=== PATIENT | female | born 1985 | race Caucasian/White ===

== ENCOUNTER 2024-04-03 05:30 | Emergency (ER) | payer BC, SELFPAY ==
--- NOTE | 2024-04-04 08:05 | ED.URI1 ---
HPI - URI/Sore Throat General Stated Complaint: SORE THROAT History of Present Illness HPI Narrative: 38-year-old female presented to the emergency department for cough with began 4 to 5 days ago. She has been coughing up some phlegm. No fever or hemoptysis. She states she is not worried about COVID or influenza. She does not complain of chest pain or vomiting. Review of Systems ROS Narrative A ten point review of systems is negative except as noted above. Exam Narrative Exam Narrative: Nurses note and vital signs reviewed and patient is not hypoxic. General: The patient appears well and in no apparent distress. Patient is resting comfortably on cart. She is speaking in full sentences Skin: Warm, dry, no pallor noted. There is no rash noted. Head: Normocephalic, atraumatic Eye: Normal conjunctiva, no drainage Ears, Nose, Mouth, and Throat: oral mucosa is moist. Nares patent. Cardiovascular: Regular Rate and Rhythm Respiratory: Patient is in no distress, no accessory muscle use, lungs are clear to auscultation, no wheezing, rales or rhonchi. Breath sounds are equal. Back: non-tender GI: Soft and nontender Musculoskeletal: The patient has no evidence of calf tenderness, no pitting edema, symmetrical pulses noted bilaterally Neurological: Awake and alert Psychiatric: Cooperative MDM - URI/Sore Throat MDM Narrative Medical decision making narrative: The patient was offered COVID and influenza testing and she does not feel it is necessary. We discussed having a chest x-ray and again we have agreed that it is not needed. She will be placed on doxycycline and Tessalon. Treatment diagnosis and follow-up were discussed with the patient. Handwritten prescriptions were given for doxycycline and Tessalon. Differential Diagnosis Differential diagnosis: Likely upper respiratory infection, viral infection, influenza and other (COVID, pneumonia) Discharge Plan Discharge Stand Alone Forms: Portal Instructions Clinical Impression: Upper respiratory infection Patient Disposition: Home, Self-Care Condition: Good Mode of Transportation: Private Vehicle Print Language: Stateless Instructions: Upper Respiratory Infection (ED) Referrals: Physician,Non-Staff, MD [Primary Care Provider] - 1 week Discharge Date/Time: 04/03/24 05:56
== END 2024-04-03 05:56 | disposition home or self-care (01) ==
LOC: ER 05:41
PROVIDERS: Emergency Provider Emergency Medicine
DX: J06.9 Acute upper respiratory infection, unspecified (principal)
CPT/HCPCS: 99283

== ENCOUNTER 2024-10-02 08:35 | Outpatient (OUT) | payer BC, SELFPAY ==
--- OUTSIDE RECORDS SUMMARY | 2024-10-02 08:39 | XMS_ITS | CCD ---
Author Organization [facility] Inform ion Partnership [facility] Care Team Providers Care Home Health Assistant Name Role Phone SARTHAK, DR ZAPATA Primary Care Unavailable TIMMIS, DR ROBIN Admitting Unavailable TIMMIS, DR ROBIN Attending Unavailable TIMMIS, DR ROBIN Consulting Unavailable SARTHAK, DR ZAPATA Primary Care Unavailable TIMMIS, DR ROBIN Admitting Unavailable TIMMIS, DR ROBIN Attending Unavailable TIMMIS, DR ROBIN Consulting Unavailable IRENE MONTERO Consulting Unavailable JOANIE DOUGHERTY Consulting Unavailable SARTHAK, DR ZAPATA Primary Care Unavailable SEDRICK, DR CARR Admitting Unavailable SEDRICK, DR CARR Attending Unavailable SEDRICK, DR CARR Consulting Unavailable MARKER, DR AGOSTO Attending Unavailable SARTHAK, DR ZAPATA Primary Care Unavailable ZIEBER, DR JOANIE Gardner Consulting Unavailable MARKER, DR AGOSTO Admitting Unavailable MARKER, DR AGOSTO Consulting Unavailable GAVINO, PATTIE Consulting Unavailable HERNANDEZ, EYAL Consulting Unavailable NARA KNIGHT Consulting Unavailable PAY, DR GLOVER Admitting Unavailable SARTHAK, DR ZAPATA Primary Care Unavailable PAY, DR GLOVER Attending Unavailable SARTHAK, DR ZAPATA Primary Care Unavailable HUE NELSON Admitting Unavailable NARA BALL Consulting Unavailable HUE NELSON Attending Unavailable YAJAIRA DAVIES Attending UnavailJuancarlos Espino MD Primary Care Provider Yajaira Davies NP Unavailable Allergies Allergy Classification Reported Allergen(s) Allergy Type Date of Onset Reaction(s) Facility (1 source) Penicillin Drug Allergy 10-16-2021 [facility] Repository Medications Current Medications Medication Drug Class(es) Dates Sig (Normalized) Sig (Original) omeprazole 20 mg delayed release oral tablet (2 sources) Proton Pump Inhibitor take 1 tablet by mouth before mealtime omeprazole OTC (PriLOSEC OTC) 20 MG EC tablet Take 20 mg by mouth in the morning. Take before meals. Do not crush, chew, or split.. Active Problems Active Problems Problem Classification Problem Date Documented Date Episodic/Chronic Administrative/socia l admission (4 sources) First encounter by subject; Translations: [Persons encountering health services in other specified circumstances] Onset: 09-22-2024 09-22-2024 Episodic Esophageal disorders (2 sources) Gastroesophageal reflux disease without esophagitis; Translations: [Gastro-esophageal reflux disease without esophagitis] Onset: 09-22-2024 09-22-2024 Chronic Immunizations and screening for infectious disease (1 source) Encounter for screening for human papillomavirus (HPV); Translations: [ENC SCREENING HUMAN PAPILLOMAVIRUS] Onset: 08-10-2022 Episodic Other and unspecified benign neoplasm (4 sources) Hemangioma of skin and subcutaneous tissue; Translations: [HEMANGIOMA SKIN SUBCUTANEOUS TISSUE] Onset: 05-28-2022 Episodic Other and unspecified benign neoplasm (1 source) Hemangioma of other sites; Translations: [HEMANGIOMA OF OTHER SITES] Onset: 05-29-2022 Episodic Other screening for suspected conditions (not mental disorders or infectious disease) (4 sources) Encounter for screening for malignant neoplasm of cervix; Translations: [ENC SCREENING MALIG NEOPLASM CERV] Onset: 08-05-2022 Episodic Other upper respiratory disease (2 sources) Allergic rhinitis; Translations: [Allergic rhinitis, unspecified] Onset: 09-22-2024 09-22-2024 Chronic Other upper respiratory disease (5 sources) Epistaxis; Translations: [EPISTAXIS] Onset: 04-15-2022 Episodic Unclassified (1 source) CONTACT W/AND (SUSP) EXPOS COVID-19; Translations: [CONTACT W/AND (SUSP) EXPOS COVID-19] Onset: 05-29-2022 Past or Other Problems Problem Classification Problem Date Documented Da te Episodic/Chronic Cardiac dysrhythmias (4 sources) Palpitations; Translations: [PALPITATIONS] Onset: 10-16-2021 Episodic Other aftercare (4 sources) Encounter for change or removal of nonsurgical wound dressing; Translations: [ENC CHG/REMOVAL NONSURG WOUND DRSG] Onset: 04-17-2022 Episodic Other upper respiratory disease (1 source) Nasal polyp, unspecified; Translations: [NASAL POLYP UNSPECIFIED] Onset: 04-16-2022 Episodic Results Test Name Value Interpretation Reference Range Facil ity PAP ACOG PANEL 2: 30 to 65on 08-12-2022 . . Normal [facility] Comment on above: Result Comment: Perf ormed at: WB Performed By: #### [id number] ####[facility] [address] [place] [id number] Orozco Age Gdln ACOG Testing 30-65 Normal [facility] Comment on above: Performed By: #### [id number] ####[facility] [address] [id number]. Artemio Orozco DIAGNOSIS: Comment Normal [facility] Comment on above: Result Comment: NEGA TIVE FOR INTRAEPITHELIAL LESION OR MALIGNANCY. Performed at: WB Performed By: #### [id number] ####[facility] [address] [place], [place] [address]DrNova Orozco HPV Aptima Negative Normal Negative [facility] Comment on above: Result Comment: This nucleic acid amplification test detects fourteen high-risk HPV types (16,18,31,33,35,39,45,51,52,56,58,59,66,68) without differentiation. Performed at: =G Performed By: #### [id number] ####[facility] [address] [id number]. Artemio Orozco Methodology: Comment Normal [facility] Comment on above: Result Comment: This liquid based ThinPrep(R) pap test was screened with the use of an image guided system. Performed at: WB Performed By: #### [id number] ####[facility] [address] [id number]. Artemio Orozco Note: Comment Normal [facility] Comment on above: Result Comment: The Pap smear is a screening test designed to aid in the detection of premalignant and malignant conditions of the uterine cervix. It is not a diagnostic procedure and should not be used as the sole means of detecting cervical cancer. Both false-positive and false-negative reports do occur. . Performed at: WB Performed By: #### [id number] ####[facility] [address] [place] [id number]. Artemio Orozco Performed by: Comment Normal [facility] Comment on above: Result Comment: Guille [employer] (ASCP) Performed at: WB Performed By: #### [id number] ####[facility] [address] [id number] Orozco Specimen adequacy: Comment Normal [facility] Comment on above: Result Comment: Sati sfactory for evaluation. Endocervical and/or squamous metaplastic cells (endocervical component) are present. Performed at: WB Performed By: #### [id number] ####[facility] [address] [place] [address] [address]Dr. Artemio Orozco PREG HCG QUALon 05-28-2022 , QUAL Negative Normal NEGATIVE [facility] Comment on above: Performed By: #### P REG #### [facility] [address] [place] [address] Dr. Artemio Orozco CBC AUTO DIFFon 05-21-2022 BASO # 0.0 103/ul Normal 0.0-0.1 [facility] Comment on above: Performed By: #### C BC #### [facility] [address] [place] [address] Dr. Artemio Orozco Basophils/100 WBC (Bld) 0.4 % Normal 0.2-2.0 [facility] Comment on above: Performed By: #### C BC #### [facility] [address] [place] [address] Dr. Artemio Orozco EO # 0.4 103/ul Normal 0.0-0.7 [facility] Comment on above: Performed By: #### C BC #### [facility] [address] [place] [address] Dr. Artemio Orozco Eosinophils/100 WBC (Bld) 5.6 % Normal 0.9-7.0 [facility] Comment on above: Performed By: #### C BC #### [facility] [address] [place] [address] Dr. Artemio Orozco Erythrocyte distribution width (RBC) [Ratio] 13.2 % Normal 11.0-15.0 [facility] Comment on above: Performed By: #### C BC #### [facility] [address] [place] [address] Dr. Artemio Orozco Hematocrit (Bld) [Volume fraction] 41.4 % Normal 36.0-48.0 [facility] Comment on above: Performed By: #### C BC #### [facility] [address] [place] [address] Dr. Artemio Orozco Hemoglobin (Bld) [Mass/Vol] 13.6 g/dL Normal 12.0-16.0 [facility] Comment on above: Performed By: #### C BC #### [facility] [address] [place] [address] Dr. Artemio Orozco IG # 0.02 10e3/ul Normal 0.00-0.03 [facility] Comment on above: Performed By: #### C BC #### [facility] [address] [place] [address] Dr. Artemio Orozco IG % 0.3 % Normal 0.0-0.5 [facility] Comment on above: Performed By: #### C BC #### [facility] [address] [place] [address] Dr. Artemio Orozco LYMPH # 1.9 103/ul Normal 1.2-3.8 [facility] Comment on above: Performed By: #### C BC #### [facility] [address] [place] [address] Dr. Artemio Orozco Lymphocytes/100 WBC (Bld) 25.0 % Normal 20.5-60.0 [facility] Comment on above: Performed By: #### C BC #### [facility] [address] [place] [address] Dr. Artemio Orozco MANUAL DIFF REQ NO Normal [facility] Comment on above: Performed By: #### C BC #### [facility] [address] [place] [address] Dr. Artemio Orozco MCH (RBC) [Entitic mass] 32.9 pg Normal 26.7-34.0 [facility] Comment on above: Performed By: #### C BC #### [facility] [address] [place] [address] Dr. Artemio Orozco MCHC (RBC) [Mass/Vol] 32.9 g/dL Normal 29.9-35.2 [facility] Comment on above: Performed By: #### C BC #### [facility] [address] [place] [address] Dr. Artemio Orozco MCV (RBC) [Entitic vol] 100.0 fL Critically high 81.0-99.0 [facility] Comment on above: Performed By: #### C BC #### [facility] [address] [place] [address] Dr. Artemio Orozco MONO # 0.5 103/ul Normal 0.3-0.8 [facility] Comment on above: Performed By: #### C BC #### [facility] [address] [place] [address] Dr. Artemio Orozco Monocytes/100 WBC (Bld) 7.0 % Normal 1.7-12.0 [facility] Comment on above: Performed By: #### C BC #### [facility] [address] [place] [address] Dr. Artemio Orozco NEUT # 4.6 103/ul Normal 1.4-6.5 [facility] Comment on above: Performed By: #### C BC #### [facility] [address] [place] [address] Dr. Artemio Orozco Neutrophils/100 WBC (Bld) 61.7 % Normal 43.0-75.0 [facility] Comment on above: Performed By: #### C BC #### [facility] [address] [place] [address] Dr. Artemio Orozco Platelet mean volume (Bld) [Entitic vol] 10.2 fL Normal 9.5-13.5 [facility] Comment on above: Performed By: #### C BC #### [facility] [address] [place] [address] Dr. Artemio Orozco PLT 310 103/ul Normal 150-450 [facility] Comment on above: Performed By: #### C BC #### [facility] [address] [place], [place] [address] Dr. Artemio Orozco RBC 4.14 106/ul Critically low 4.20-5.40 [facility] Comment on above: Performed By: #### C BC #### [facility] [address] [place], [place] [address] Dr. Artemio Orozco WBC 7.5 103/ul Normal 4.0-11.0 [facility] Comment on above: Performed By: #### C BC #### [facility] [address] [place], [place] [address] Dr. Artemio Orozco Covid-19 PCR ([facility])on 04-25 SARS-CoV-2 (COVID-19) RNA KALEB+probe Ql (Unsp spec) Not detected Normal NOT DETECTED [facility] Comment on above: Result Comment: This test is not yet approved or cleared by the [place] FDA. When there are no FDA-approved or cleared tests available, and other criteria are met, FDA can make tests available under an emergency access mechanism called an Emergency Use Authorization (EUA). The EUA for this test is supported by the [place] of Health and Human Service's (HHS's) declaration that circumstances exist to justify the emergency use of in vitro diagnostics for the detection and/or diagnosis of the virus that causes COVID-19. This EUA will remain in effect (meaning this test can be used) for the duration of the COVID-19 declaration justifying emergency of IVDs, unless it is terminated or revoked by FDA (after which the test may no longer be used). When diagnostic testing is negative, the possibility of a false negative should be considered in the context of a patient's recent exposures and the presence of clinical signs and symptoms consistent with SARS-CoV-2. Performed By: #### C VDTBH ####[facility] [address] [place], [place] [address]XoDr. Artemio Orozco XR CHEST 1 Von 10-17-2021 XR CHEST 1 V EXAM: Single frontal view chest x-ray. HISTORY: Acute palpitations. COMPARISON: None. TECHNIQUE: Single frontal view chest x-ray. FINDINGS: Mild bilateral lower lung streaky pulmonary opacities. No large effusions, pneumothorax, or acute bony abnormality. Cardiac size unremarkable. IMPRESSION: Mild bilateral lower lung streaky pulmonary opacities reflect atelectasis or minimal infiltrates. Electronically authenticated by: EYAL HERNANDEZ Date: 2021-10-17 05:27 Normal [facility] CBC AUTO DIFFon 10-16-2021 BASO # 0.0 103/ul Normal 0.0-0.1 [facility] Comment on above: Performed By: #### C BC #### [facility] [address] [address] [address] Artemio Orozco Basophils/100 WBC (Bld) 0.4 % Normal 0.2-2.0 [facility] Comment on above: Performed By: #### C BC #### [facility] [address] [address] [address] Artemio Orozco EO # 0.1 103/ul Normal 0.0-0.7 [facility] Comment on above: Performed By: #### C BC #### [facility] [address] [address] [address] Artemio Orozco Eosinophils/100 WBC (Bld) 1.3 % Normal 0.9-7.0 [facility] Comment on above: Performed By: #### C BC #### [facility] [address] [address] [address] Artemio Orozco Erythrocyte distribution width (RBC) [Ratio] 13.1 % Normal 11.0-15.0 [facility] Comment on above: Performed By: #### C BC #### [facility] [address] [address] [address] Artemio Orozco Hematocrit (Bld) [Volume fraction] 40.4 % Normal 36.0-48.0 [facility] Comment on above: Performed By: #### C BC #### [facility] [address] [address] [address] Artemio Orozco Hemoglobin (Bld) [Mass/Vol] 13.7 g/dL Normal 12.0-16.0 [facility] Comment on above: Performed By: #### C BC #### [facility] [address] [address] [address] Artemio Orozco IG # 0.02 10e3/ul Normal 0.00-0.03 [facility] Comment on above: Performed By: #### C BC #### [facility] [address] [address] [address] Artemio Orozco IG % 0.2 % Normal 0.0-0.5 [facility] Comment on above: Performed By: #### C BC #### [facility] [address] [place] [address] Dr. Artemio Orozco LYMPH # 1.7 103/ul Normal 1.2-3.8 [facility] Comment on above: Performed By: #### C BC #### [facility] [address] [place] [address] Dr. Artemio Orozco Lymphocytes/100 WBC (Bld) 16.6 % Critically low 20.5-60.0 [facility] Comment on above: Performed By: #### C BC #### [facility] [address] [place] [address] Dr. Artemio Orozco MANUAL DIFF REQ NO Normal [facility] Comment on above: Performed By: #### C BC #### [facility] [address] [place] [address] Dr. Artemio Orozco MCH (RBC) [Entitic mass] 33.0 pg Normal 26.7-34.0 [facility] Comment on above: Performed By: #### C BC #### [facility] [address] [place] [address] Dr. Artemio Orozco MCHC (RBC) [Mass/Vol] 33.9 g/dL Normal 29.9-35.2 [facility] Comment on above: Performed By: #### C BC #### [facility] [address] [place] [address] Dr. Artemio Orozco MCV (RBC) [Entitic vol] 97.3 fL Normal 81.0-99.0 [facility] Comment on above: Performed By: #### C BC #### [facility] [address] [place], [place] [id number] Dr. Artemio Orozco MONO # 0.5 103/ul Normal 0.3-0.8 [facility] Comment on above: Performed By: #### C BC #### [facility] [address] [place] [address] Dr. Artemio Orozco Monocytes/100 WBC (Bld) 4.8 % Normal 1.7-12.0 [facility] Comment on above: Performed By: #### C BC #### [facility] [address] [place] [address] Dr. Artemio Orozco NEUT # 8.0 103/ul Critically high 1.4-6.5 [facility] Comment on above: Performed By: #### C BC #### [facility] [address] [place] [address] Dr. Artemio Orozco Neutrophils/100 WBC (Bld) 76.7 % Critically high 43.0-75.0 [facility] Comment on above: Performed By: #### C BC #### [facility] [address] [place] [address] Dr. Artemio Orozco Platelet mean volume (Bld) [Entitic vol] 10.2 fL Normal 9.5-13.5 [facility] Comment on above: Performed By: #### C BC #### [facility] [address] [place] [address] Dr. Artemio Orozco PLT 287 103/ul Normal 150-450 [facility] Comment on above: Performed By: #### C BC #### [facility] [address] [place] [address] Dr. Artemio Orozco RBC 4.15 106/ul Critically low 4.20-5.40 [facility] Comment on above: Performed By: #### C BC #### [facility] [address] [place] [address] Dr. Artemio Orozco WBC 10.4 103/ul Normal 4.0-11.0 [facility] Comment on above: Performed By: #### C BC #### [facility] [address] [place] [address] Dr. Artemio Orozco CTA CHEST WO W CONon 021 CTA CHEST WO W CON EXAMINATION: CTA KOBI ST WO W CON HISTORY: Pulmonary embolism , elevated d-dimer, tachycardia COMPARISON: No relevant comparison available. TECHNIQUE: Multi-planar CT images were created with IV contrast. Axial, Coronal, and Sagittal images. Dose reduction techniques were achieved by using automated exposure control and/or adjustment of mA and/or kV according to patient size and/or use of iterative reconstruction technique. 3-D reconstruction was performed on a separate workstation. FINDINGS: VASCULATURE: No pulmonary embolism or abnormal opacity. LUNGS: No visible pulmonary disease. PLEURA: No mass, effusion, or pneumothorax. LACY: No mass or adenopathy. MEDIASTINUM: No mass or adenopathy. CARDIAC: No enlargement, pericardial effusion, or pericardial thickening. AORTA: No aneurysm or dissection. CHEST WALL: No mass or axillary adenopathy. BONES: No bone lesion or fracture. LIMITED ABDOMEN: No suspicious findings. Limited images of the upper abdomen. OTHER: Negative. IMPRESSION: 1. No pulmonary embolism. 2. No pulmonary infiltrates or abnormal findings to account for patient's symptoms. Electronically authenticated by: JOANIE CARL Date: 2021-10-16 08:46 Normal [facility]25 SARS-CoV-2 (COVID-19) RNA KALEB+probe Ql (Unsp spec) Not detected Normal NOT DETECTED [facility] Comment on above: Result Comment: When diagnostic testing is negative, the possibility of a false negative should be considered in the context of a patient's recent exposures and the presence of clinical signs and symptoms consistent with SARS-CoV-2. This test is not yet approved or cleared by the [place] FDA. When there are no FDA-approved or cleared tests available, and other criteria are met, FDA can make tests available under an emergency access mechanism called an Emergency Use Authorization (EUA). The EUA for this test is supported by the [place] of Health and Human Service's declaration that circumstances exist to justify the emergency use of in vitro diagnostics for the detection and/or diagnosis of the virus that causes COVID-19. This EUA will remain in effect for the duration of the COVID-19 declaration justifying emergency of IVDs, unless it is terminated or revoked by the FDA (after which the test may no longer be used). Performed By: #### C VDTBH #### [facility] [address] [address] [address] Artemio Orozco D-DIMERon 10-16-2021 D-DIMER 0.61 mg/L FEU Critically high 0.19-0.50 [facility] Comment on above: Result Comment: TEST REPEATED; CRITICAL VALUE VERIFIED Performed By: #### D DIM ####[facility] [address] [place] [id number]. Artemio Orozco D-DIMER COMMENTS SEE BELOW Normal [facility] Comment on above: Result Comment: Incr eases in D-Dimer concentration observed with thromboembolic events can be variable due to localization, size, and age of the thrombus. Therefore, a thromboembolic event cannot be diagnosed with certainty on the basis of the reference range. D-Dimers may also be elevated for a variety of disorders including: advanced age, , coronary disease, cancer, liver disease, infection, inflammation, hematoma, DIC, trauma, post-surgery, diabetes, thrombolytic or anticoagulant therapy, stress, and generalized hospitalization. Performed By: #### D DIM ####[facility] [address] [place] [id number]. Artemio Orozco PROF 14(COMP METB)on 021 Albumin [Mass/Vol] 3.7 g/dL Normal 3.5-5.0 [facility] Comment on above: Performed By: #### H STROPN, TSH, CMP #### [facility] [address] [address] [address] Artemio Orozco Albumin/Globulin [Mass ratio] 0.9 {ratio} Normal [facility] Comment on above: Performed By: #### H STROPN, TSH, CMP #### [facility] [address] [address] [address] Artemio Orozco ALP [Catalytic activity/Vol] 58 U/L Normal 38-126 [facility] Comment on above: Performed By: #### H STROPN, TSH, CMP #### [facility] [address] [address] [address] Artemio Orozco ALT [Catalytic activity/Vol] 23 U/L Normal 9-52 [facility] Comment on above: Performed By: #### H STROPN, TSH, CMP #### [facility] [address] [address] [address] Artemio Orozco Anion gap [Moles/Vol] 16.8 mmol/L Normal [facility] Comment on above: Performed By: #### H STROPN, TSH, CMP #### [facility] [address] [place] [address] Dr. Artemio Orozco AST [Catalytic activity/Vol] 15 U/L Normal 14-36 [facility] Comment on above: Performed By: #### H STROPN, TSH, CMP #### [facility] [address] [place] [address] Dr. Artemio Orozco Bilirubin [Mass/Vol] 0.5 mg/dL Normal 0.2-1.3 [facility] Comment on above: Performed By: #### H STROPN, TSH, CMP #### [facility] [facility] [address] [place] [address] Dr. Artemio Orozco Calcium [Mass/Vol] 9.1 mg/dL Normal 8.4-10.2 [facility] Comment on above: Performed By: #### H STROPN, TSH, CMP #### [facility] [address] [place] [address] Dr. Artemio Orozco Chloride [Moles/Vol] 105 mmol/L Normal 98-107 [facility] Comment on above: Performed By: #### H STROPN, TSH, CMP #### [facility] [address] [place] [address] Dr. Artemio Orozco CO2 [Moles/Vol] 23.9 mmol/L Normal 22.0-30.0 [facility] Comment on above: Performed By: #### H STROPN, TSH, CMP #### [facility] [address] [place] [address] Dr. Artemio Orozco Creatinine [Mass/Vol] 0.65 mg/dL Normal 0.52-1.04 [facility] Comment on above: Performed By: #### H STROPN, TSH, CMP #### [facility] [address] [address] [address] Artemio Orozco EGFR-AF EMIRATI >60 Normal >=60 [facility] Comment on above: Performed By: #### H STROPN, TSH, CMP #### [facility] [address] [address] [address] Artemio Orozco EGFR-NON AF EMIRATI >60 Normal >=60 [facility] Comment on above: Performed By: #### H STROPN, TSH, CMP #### [facility] [address] [address] [address] Artemio Orozco Globulin (S) [Mass/Vol] 4.1 g/dL Normal [facility] Comment on above: Performed By: #### H STROPN, TSH, CMP #### [facility] [address] [place] [address] Dr. Artemio Orozco Glucose [Mass/Vol] 106 mg/dL Normal 74-106 [facility] Comment on above: Performed By: #### H STROPN, TSH, CMP #### [facility] [address] [place] [address] Dr. Artemio Orozco Potassium [Moles/Vol] 3.7 mmol/L Normal 3.4-5.0 [facility] Comment on above: Performed By: #### H STROPN, TSH, CMP #### [facility] [address] [place] [address] Dr. Artemio Orozco Protein [Mass/Vol] 7.8 g/dL Normal 6.1-8.2 [facility] Comment on above: Performed By: #### H STROPN, TSH, CMP #### [facility] [address] [place] [address] Dr. Artemio Orozco Sodium [Moles/Vol] 142 mmol/L Normal 137-145 [facility] Comment on above: Performed By: #### H STROPN, TSH, CMP #### [facility] [address] [place] [address] Dr. Artemio Orozco Urea nitrogen [Mass/Vol] 9.0 mg/dL Normal 7.0-17.0 [facility] Comment on above: Performed By: #### H STROPN, TSH, CMP #### [facility] [address] [address] [address] Artemio Orozco Urea nitrogen/Creatinine [Mass ratio] 13.8 mg/mg Normal [facility] Comment on above: Performed By: #### H STROPN, TSH, CMP #### [facility] [address] [address] [address] Artemio Orozco TROPONIN, HIGH SENSITIVITYon 10-16-2021 HSTROP 8.1 pg/mL Normal 4.0-35.5 [facility] Comment on above: Result Comment: CUT- OFF POINTS HAVE BEEN ESTABLISHED BASED ON THE FOURTH UNIVERSAL DEFINITIONS OF MYOCARDIAL INFARCTION. THE UPPER REFERENCE LIMIT (URL) OF TROPONIN, DEFINED THE 99TH PERCENTILE OF cTnI DISTRIBUTION IN A REFERENCE POPULATION, HAS BEEN CONFIRMED THE DECISION THRESHOLD FOR PR DIAGNOSIS. Performed By: #### H STROPN, TSH, CMP #### [facility] [address] [address] [address] Artemio Orozco TSHon 10-16-2021 TSH 3.114 uIU/mL Normal 0.470-4.680 [facility] Comment on above: Performed By: #### H STROPN, TSH, CMP #### [facility] [address] [place] [address] Dr. Artemio Orozco TSH RANGE SEE BELOW Normal [facility] Comment on above: Result Comment: <0.3 4 UIU/ml HYPERTHYROID 0.34-5.60 UIU/ml EUTHYROID >5.60 UIU/ml HYPOTHYROID Performed By: #### H STROPN, TSH, CMP #### [facility] [address] [place] [address] Dr. Artemio Orozco Vital Signs Date Time Vital Sign Value Performing Clinician Faci lity 09-22-2024 16:54-0400 Body height 157.5 cm Yajaira Davies [employer]IST[employer] Work Phone: [facility] 09-22-2024 16:54-0400 Body mass index (BMI) [Ratio] 25.15 kg/m2 Yajaira Davies [employer] ASSIST[employer] Work Phone: [facility] 09-22-2024 16:54-0400 Body temperature 97.5 [degF] Yajaira Garciapatrick [employer] ASSISTANT Work Phone: [facility] 09-22-2024 16:54-0400 Body weight 62.37 kg Yajaira Garciapatrick [employer] ASSISTANT Work Phone: [facility] 09-22-2024 16:54-0400 Diastolic blood pressure 76 mm[Hg] Yajaira Davies [employer] ASSIST[employer] Work Phone: [facility] 09-22-2024 16:54-0400 Heart rate 98 /min Yajaira Davies [employer] ASSIST[employer] Work Phone: [facility] 09-22-2024 16:54-0400 Respiratory rate 16 /min Yajaira Davies [employer] ASSIST[employer] Work Phone: [facility] 09-22-2024 16:54-0400 SaO2% (BldA) [Mass fraction] 100 % Yajaira Davies [employer] ASSIST[employer] Work Phone: [facility] 09-22-2024 16:54-0400 Systolic blood pressure 110 mm[Hg] Yajaira Davies [employer] ASSIST[employer] Work Phone: [facility] Healthcare Encounters Encounter Date Encounter Type Care Provider Facility Start: 09-22-2024 End: 09-22-2024 Initial preventive medicine new pt age 18-39yrs Yajaira Lymanzpatrick [employer]IST[employer] Work Phone: [facility] Comment on above: Wellness examination (Primary Dx); Encounter to establish care Start: 09-22-2024 End: 09-22-2024 ambulatory YAJAIRA LYMANZPATRICK Not Available Start: 09-22-2024 End: 09-22-2024 Patient encounter status Yajaira Garciapatrick [employer]IST[employer] Work Phone: [facility] Healthcare Work Phone: Start: 08-05-2022 End: 08-05-[address] SHELIA DE LEÓN Facility: Start: 05-29-2022 Encounter for preprocedural laboratory examination DR SHANNON COLE [facility] Start: 05-28-2022 End: 05-28-[address] SHELIA DE LEÓN Facility:[facility] Start: 05-21-2022 End: 05-22-[address] SHELIA DE LEÓN Facility:[facility] Start: 05-21-2022 End: 05-22-2022 Encounter for preprocedural laboratory examination DR SHELIA DE LEÓN Facility:[facility] Start: 04-17-2022 End: 04-17-[address] SHELIA DE LEÓN Facility:[facility] Start: 04-15-2022 End: 04-15-2022 ambulatory NARA KNIGHT Facility:[facility] Start: 10-16-2021 End: 10-16-[address] TRINY COOPER Facility:[facility] Procedures Date Procedure Procedure Detail Performing Clinician Start: 08-05-2022 Microscopic observat ion [Identifier] in Cervix by Cyto stain Yajaira Davies [employer]IST[employer] Work Phone: Plan of Treatment Date Care Activity Detail Author Start: 08-05-2025 Screening for malign ant neoplasm of cervix [facility] Start: 09-22-2024 End: 09-22-2025 CBC W Auto Differential panel - Blood CBC and differential Lab Routine Wellness examination Expected: 09/22/2024 (Approximate), Expires: 09/22/2025 [facility] Comment on above: Expected: 09/22/2024 (Approximate), Expires: 09/22/2025 Start: 09-22-2024 End: 09-22-2025 Comprehensive metabolic 2000 panel - Serum or Plasma Comprehensive metabolic panel Lab Routine Wellness examination Expected: 09/22/2024 (Approximate), Expires: 09/22/2025 [facility] Comment on above: Expected: 09/22/2024 (Approximate), Expires: 09/22/2025 Start: 09-22-2024 End: 09-22-2025 Hemoglobin A1c/Hemoglobin.total in Blood Hemoglobin A1c Lab Routine Wellness examination Expected: 09/22/2024 (Approximate), Expires: 09/22/2025 [facility] Comment on above: Expected: 09/22/2024 (Approximate), Expires: 09/22/2025 Start: 09-22-2024 End: 09-22-2025 Lipid 1996 panel - Serum or Plasma Lipid panel Lab Routine Wellness examination Expected: 09/22/2024 (Approximate), Expires: 09/22/2025 [facility] Comment on above: Expected: 09/22/2024 (Approximate), Expires: 09/22/2025 Start: 09-22-2024 End: 09-22-2025 TSH W/REFLEX TO FT4 TSH W/REFLEX TO FT4 Lab Routine Wellness examination Expected: 09/22/2024 (Approximate), Expires: 09/22/2025 [facility] Healthcare Work Phone: Comment on above: Expected: 09/22/2024 (Approximate), Expires: 09/22/2025 Start: 2017 Screening for malign ant neoplasm of cervix HPV/Cotest [facility] Payers Date Payer Category Payer [facility] .[id number] 2023 Unknown [id number] 1987 Unknown [id number] 1987 Unknown [id number] 1987 Unknown [id number] 1987 Unknown [id number] 1987 Unknown [id number] 1987 Unknown [id number] 1987 Unknown [id number] 1959 Unknown [id number] Social History Date Type Detail Facility Start: 07-31-2023 Tobacco smoking stat [facility] Never smoked tobacco [facility] Start: 09-22-2024 Alcoholic beverage intake Life time non-drinker (finding) [facility] Start: 09-22-2024 History of Social function [facility] Start: 09-22-2024 Tobacco use panel [facility] Start: 07-31-2023 Alcohol Comment Caffeine: 1-2 cups per day chocolate, tea [facility] Start: 1987 Sex assigned at Not on file [facility] History of Present illness Narrative 09-22-2024 Yajaira Davies NP - 09/22/2024 5:26 PM EDTBdaniela Davies NP - 09/22/2024 5:00 PM EDT Note Date & Type Note Facility 09-22-2024 History of Presen t illness Narrative Associated Problem(s): Wellness examination I have reviewed Ht/Wt/BMI, I have reviewed recommended vaccines for patient's age, as well as all recommended screenings I have reviewed available care everywhere notes as well. I have recommended eating a balanced diet, as well as activity as chronic conditions allow It is recommended that the patient have a yearly eye exam, as well as twice a year dental exams Fu in this office for wellness on a yearly basis Diet: Eat three meals per day. Breakfast, lunch, and dinner. Avoid snacking. Avoid eating after 5/6 pm. Daily protein GOAL 35% of your intake; 30g per meal. Daily calorie GOAL 1,800-2,000 per day. Consider tracking your food intake on MyFtinessPal or LoseIt Water: Increase water intake; GOAL 64-80oz of water per day. Exercise: Increase activity. GOAL 30 minutes, 5 days per week. START SLOW. Start with 5 minutes, 5 days per week. Then increase to 10 days, 5 days per week. Continue to increase until you reach the goal. Increase steps; GOAL 10,000 steps per day. Be sure to get adequate sleep; GOAL 6-8 hours of sleep per night. Images from the original note were not included. Subjective Patient ID: Irene Rawls is a 39 y.o. female who presents for Establish Care. HPI Reports heartburn daily Eats frequently before bed Moderate caffeine intake Moderate chocolate intake Takes omeprazole 20mg OTC PRN - feels it helps Lives at home with Works at [employer] in [place] Enjoys reading, going on walks, being in nature, concerts, spending time with , active in jew. Diet: Mostly home cooked meals; Moderate protein. Moderate fruits/vegetables. Water: 84 ounces per day. Exercise: Runs on treadmill daily; Rides bike when weather permits. Does indoor elliptical. Sleep: 6-7 hours per night, feels well rested. Review of Systems Constitutional: Negative for activity change, appetite change, chills, diaphoresis, fatigue, fever and unexpected weight change. HENT: Negative for congestion, ear pain, rhinorrhea, sinus pressure, sinus pain, sneezing, sore throat, trouble swallowing and voice change. Eyes: Negative for visual disturbance. Respiratory: Negative for cough, chest tightness, shortness of breath and wheezing. Cardiovascular: Negative for chest pain, palpitations and leg swelling. Gastrointestinal: Negative for abdominal distention, abdominal pain, blood in stool, constipation, diarrhea and vomiting. Genitourinary: Negative for decreased urine volume, dysuria, flank pain, frequency, hematuria and urgency. Musculoskeletal: Negative for arthralgias, gait problem, joint swelling and myalgias. Skin: Negative for rash. Neurological: Negative for dizziness, tremors, syncope, weakness, light-headedness and headaches. Psychiatric/Behavioral: Negative for decreased concentration and suicidal ideas. The patient is not nervous/anxious. Hematological: Does not bruise/bleed easily. Endocrine: Negative for cold intolerance, heat intolerance, polydipsia, polyphagia and polyuria. Objective Physical Exam Vitals reviewed. Constitutional: Appearance: Normal appearance. HENT: Head: Normocephalic and atraumatic. Right Ear: Tympanic membrane normal. Left Ear: Tympanic membrane normal. Nose: Nose normal. Mouth/Throat: Mouth: Mucous membranes are moist. Pharynx: Oropharynx is clear. Eyes: Pupils: Pupils are equal, round, and reactive to light. Cardiovascular: Rate and Rhythm: Normal rate and regular rhythm. Pulses: Normal pulses. Heart sounds: Normal heart sounds. Pulmonary: Effort: Pulmonary effort is normal. Breath sounds: Normal breath sounds. Abdominal: General: Abdomen is flat. Bowel sounds are normal. Palpations: Abdomen is soft. Musculoskeletal: General: Normal range of motion. Cervical back: Normal range of motion. Skin: General: Skin is warm and dry. Capillary Refill: Capillary refill takes less than 2 seconds. Neurological: General: No focal deficit present. Mental Status: She is alert and oriented to person, place, and time. Psychiatric: Mood and Affect: Mood normal. Behavior: Behavior normal. Assessment/Plan Problem List Items Addressed This Visit Wellness examination - Primary I have reviewed Ht/Wt/BMI, I have reviewed recommended vaccines for patient's age, as well as all recommended screenings I have reviewed available care everywhere notes as well. I have recommended eating a balanced diet, as well as activity as chronic conditions allow It is recommended that the patient have a yearly eye exam, as well as twice a year dental exams Fu in this office for wellness on a yearly basis Diet: Eat three meals per day. Breakfast, lunch, and dinner. Avoid snacking. Avoid eating after 5/6 pm. Daily protein GOAL 35% of your intake; 30g per meal. Daily calorie GOAL 1,800-2,000 per day. Consider tracking your food intake on MyFtinessPal or LoseIt Water: Increase water intake; GOAL 64-80oz of water per day. Exercise: Increase activity. GOAL 30 minutes, 5 days per week. START SLOW. Start with 5 minutes, 5 days per week. Then increase to 10 days, 5 days per week. Continue to increase until you reach the goal. Increase steps; GOAL 10,000 steps per day. Be sure to get adequate sleep; GOAL 6-8 hours of sleep per night. Relevant Orders TSH W/REFLEX TO FT4 Lipid panel Hemoglobin A1c Comprehensive metabolic panel CBC and differential Encounter to establish care documented in this encounter [facility] Instructions 09-22-2024 Patient Instructions Note Date & Type Note Facility 09-22-2024 Instructions Yajaira Davies NP - 09/22/2024 5:00 PM EDT FASTING labs ordered. Nothing to eat or drink for 12 hours prior to blood draw. Water and black coffee ok. Try stopping eating 4-6 hours before bed. Avoid caffeine after 12pm. Limit sweets. Call if you need anything! documented in this encounter [facility] Clinical Note 05-28-2022 Note Date & Type Note Facility 05-28-2022 Note OPERATIVE NOTE OPERATION DATE: 05/28/2022 PRIMARY CARE PHYSICIAN: Shelia De León M.D. SURGEON: Shannon Cole M.D. PREOPERATIVE DIAGNOSIS: Left nasal hemangioma. POSTOPERATIVE DIAGNOSIS: Left nasal hemangioma. PROCEDURE: Removal of left nasal hemangioma. ANESTHESIA: General endotracheal. COMPLICATIONS: None. FINDINGS: 1 cm pedunculated hemangioma of the left anterior nasal septum. INDICATIONS: This 36-year-old woman presented with recurrent epistaxis secondary to the above vascular lesion in her nose. PROCEDURE: Patient identified in the holding area and taken back to the OR where she was placed in the supine position. After the induction of general endotracheal anesthesia, the table was turned and lidocaine 1% with 1:100,000 epinephrine infiltrated around the base of her hemangioma. After waiting adequate time for hemostasis, the nose was prepped with Betadine and then, using an otologic flap knife and weapon incisions were made superiorly and anteriorly to the hemangioma. The hemangioma was then back elevated and a scissor used to remove it from the nose. The excision site was then cauterized with suction Bovie and antibiotic ointment was placed over the cautery site. Patient was then awakened and taken to the recovery room in good condition. [facility] Signed and Approved by: DR SHANNON COLE 06/04/2022 08:06:00 [facility] Evaluation note Note Date & Type Note Facility Evaluation note Diagnosis Wellness examination- Primary Encounter to establish care documented in this encounter [facility] Summary Purpose Family History No Family History Records FoundNo Family History Records Found Advance Directives No Advanced Directives Records FoundNo Advanced Directives Records Found Additional Source Comments INFORMATION SOURCE (unrecogn ized section and content) DATE CREATED AUTHOR 08/24/2022 [facility] DATE CREATED AUTHOR AUTHOR'S ORGANIZ ATION 09/24/2024 [facility] EPIC Reason for Visit (unrecogniz ed section and content) Reason Comments Establish Care Care Teams (unrecognized sec tion and content) Home Health Assistant Relationship Specialty Start Date End Date Juancarlos Walter MD [address] [place] [address] PCP - General Family Medicine 08/24/24 Yajaira Davies NP [address] [place] [address] Nurse Practitioner Family Medicine 08/24/24 FOR RECORDS PERTAINING TO PATIENTS WHO ARE OR HAVE BEEN ENROLLED IN A CHEMICAL DEPENDENCY/SUBSTANCEABUSE PROGRAM, SOME INFORMATION MAY BE OMITTED. This clinical summary was aggregated from multiple sources. Caution should be exercised in using it in the provision of clinical care. This summary normalizes information from multiple sources, and as a consequence, information in this document may materially change the coding, format and clinical context of patient data. In addition, data may be omitted in some cases. CLINICAL DECISIONS SHOULD BE BASED ON THE PRIMARY CLINICAL RECORDS. [employer] provides no warranty or guarantee of the accuracy or completeness of information in this document.
[2024-10-02 09:39] LABS: Basophils Percent Auto 0.3 % (0.2-2.0); Eosinophils Absolute Auto 0.3 10^3/uL (0.0-0.7); Eosinophils Percent Auto 3.7 % (0.9-7.0); Hematocrit 42.4 % (36.0-48.0); Hemoglobin 14.1 g/dL (12.0-16.0); Immature Granulocytes Abs Auto 0.02 10^3/uL (0.00-0.03); Immature Granulocytes Pct Auto 0.2 % (0.0-0.5); Mean Corpuscular HGB Conc 33.3 g/dL (29.9-35.2); Mean Corpuscular Hemoglobin 32.9 pg (26.7-34.0); Mean Corpuscular Volume 99.1 fL (81.0-99.0); Mean Platelet Volume 9.8 fL (9.5-13.5); Monocytes Absolute Auto 0.6 10^3/uL (0.3-0.8); Monocytes Percent Auto 6.4 % (1.7-12.0); Neutrophils Absolute Auto 5.9 10^3/uL (1.4-6.5); Neutrophils Percent Auto 66.4 % (43.0-75.0); Platelet Count 349 10^3/uL (150-450); Red Blood Count 4.28 10^6/uL (4.20-5.40); Red Cell Distribution Width 13.2 % (11.0-15.0); White Blood Count 8.8 10^3/uL (4.0-11.0)
[2024-10-02 10:08] LABS: Alanine Aminotransferase 20 U/L (14-59); Albumin Globulin Ratio 0.9; Albumin Level 3.4 g/dL (3.4-5.0); Alkaline Phosphatase 69 U/L (46-116); Anion Gap 14.5; Aspartate Amino Transferase 13 U/L (15-37); BUN Creatinine Ratio 10.8; Bilirubin Total 0.6 mg/dL (0.2-1.0); Calcium 8.8 mg/dL (8.5-10.1); Carbon Dioxide 26.8 mmol/L (21.0-32.0); Chloride 107 mmol/L (98-107); Chol HDL Ratio 3.1; Cholesterol 222 mg/dL (<=200); Estimated GFR (African America >60 (>=60 mL/min/1.73m^2); Estimated GFR (Non-African Ame >60 (>=60 mL/min/1.73m^2); Globulin 3.8 g/dL; Glucose 90 mg/dL (74-106); HDL Cholesterol 71 mg/dL (40-60); Potassium 4.3 mmol/L (3.5-5.1); Sodium 144 mmol/L (136-145); TSH W/ REFLEX FT4 2.506 uIU/mL (0.358-3.740); Total Protein 7.2 g/dL (6.4-8.2); Triglycerides 72 mg/dL (<=150); VLDL CHOLESTEROL 14.4 mg/dL
[2024-10-02 10:25] LABS: Estimated Average Glucose 108 mg/dL; Glycohemoglobin A1C 5.4 % (4.5-6.2)
== END 2024-10-02 08:36 | disposition home or self-care (01) ==
DX: Z00.00 Encounter for general adult medical examination without abnormal findings (principal)
CPT/HCPCS: 36415; 80053; 80061; 83036; 84443; 85025

== ENCOUNTER 2024-11-06 17:57 | Emergency (ER) | payer BC, SELFPAY ==
--- OUTSIDE RECORDS SUMMARY | 2024-11-06 18:04 | XMS_ITS | CCD ---
Author Organization [facility] Inform ion Partnership [facility] Care Team Providers Care Miniature Train Driver Name Role Phone SARTHAK, DR ZAPATA Primary [...] (1 source) Penicillin Drug Allergy 10-16-2021 [facility] Repository Medications Current Medications Medication Drug Class(es) Dates Sig (Normalized) Sig (Original) omeprazole 20 mg delayed release oral tablet (3 sources) Proton Pump Inhibitor take 1 tablet by mouth before mealtime omeprazole OTC (PriLOSEC OTC) 20 MG EC tablet Take 20 mg by mouth in the morning. Take before meals. Do not crush, chew, or split.. Active Problems Active Problems Problem Classification Problem Date Documented Date Episodic/Chronic Administrative/socia l admission (5 sources) First encounter by subject; Translations: [Persons encountering health services in other specified circumstances] Onset: 09-22-2024 09-22-2024 Episodic Esophageal disorders (3 sources) Gastroesophageal reflux disease without esophagitis; Translations: [...] Onset: 08-05-2022 Episodic Other upper respiratory disease (3 sources) Allergic rhinitis; Translations: [Allergic rhinitis, unspecified] [...] Results Test Name Value Interpretation Reference Range Facility ALL CBC WITH AUTO DIFFon BASOPHILS ABSOLUTE [facility]O [facility] Basophils/100 WBC (Bld) 0.3 % 0.2 - 2.0 % [facility] Eosinophils/100 WBC (Bld) 3.7 % 0.9 - 7.0 % [facility] Erythrocyte distribution width (RBC) [Ratio] 13.2 % 11.0 - 15.0 % [facility] Hematocrit (Bld) [Volume fraction] 42.4 % 36.0 - 48.0 % [facility] Hemoglobin (Bld) [Mass/Vol] 14.1 g/dL 12.0 - 16.0 g/dL [facility] IMMATURE GRANULOCYTES ABS AUTO 0.02 [facility] Immature granulocytes/100 WBC (Bld) 0.2 % 0.0 - 0.5 % [facility] Interpretation and review of laboratory results Abnormal [facility] LYMPHOCYTES ABSOLUTE AUTO 2 [facility] Lymphocytes/100 WBC (Bld) 23 % 20.5 - 60.0 % [facility] MCH (RBC) [Entitic mass] 32.9 pg 26.7 - 34.0 pg [facility] MCHC (RBC) [Mass/Vol] 33.3 g/dL 29.9 - 35.2 g/dL [facility] MCV (RBC) [Entitic vol] 99.1 fL High 81.0 - 99.0 fL [facility] MONOCYTES ABSOLUTE AUTO 0.6 [facility] Monocytes/100 WBC (Bld) 6.4 % 1.7 - 12.0 % [facility] NEUTROPHILS ABSOLUTE AUTO 5.9 [facility] Neutrophils/100 WBC (Bld) 66.4 % 43.0 - 75.0 % [facility] Platelet mean volume (Bld) [Entitic vol] 9.8 fL 9.5 - 13.5 fL [facility] EO # 0.3 [facility] PLT 349 [facility] RBC 4.28 [facility] WBC 8.8 [facility] PAP ACOG PANEL 2: 30 to 65on 08-12-2022 . . Normal [facility] Comment on above: Result Comment: Perf ormed at: WB Performed By: #### [id number] ####[facility] [address] [place] [id number] Orozco Age Gdln ACOG Testing 30-65 Normal [facility] Comment on above: Performed By: #### [id number] ####[facility] [address] [place] [id number]. Artemio Orozco DIAGNOSIS: Comment Normal [facility] Comment on above: Result Comment: NEGA TIVE FOR INTRAEPITHELIAL LESION OR MALIGNANCY. Performed at: WB Performed By: #### [id number] ####[facility] [address] [place] [id number] Orozco HPV Aptima Negative Normal Negative [facility] Comment on above: Result Comment: This nucleic acid amplification test detects fourteen high-risk HPV types (16,18,31,33,35,39,45,51,52,56,58,59,66,68) without differentiation. Performed at: =G Performed By: #### [id number] ####[facility] [address] [place], [place] [id number]. Artemio Orozco Methodology: Comment Normal [facility] Comment on above: Result Comment: This liquid based ThinPrep(R) pap test was screened with the use of an image guided system. Performed at: WB Performed By: #### [id number] ####[facility] [address] [place] [address]DrNova Orozco Note: Comment Normal [facility] Comment on above: Result Comment: The Pap smear is a screening test designed to aid in the detection of premalignant and malignant conditions of the uterine cervix. It is not a diagnostic procedure and should not be used as the sole means of detecting cervical cancer. Both false-positive and false-negative reports do occur. . Performed at: WB Performed By: #### [id number] ####[facility] [address] [place] [id number] Orozco Performed by: Comment Normal [facility] Comment on above: Result Comment: [facility] Care Law Specialist (ASCP) Performed at: WB Performed By: #### [id number] ####[facility] [address] [place] [address]Dr. Artemio Orozco Specimen adequacy: Comment Normal [facility] Comment on above: Result Comment: Sati sfactory for evaluation. Endocervical and/or squamous metaplastic cells (endocervical component) are present. Performed at: WB Performed By: #### [id number] ####[facility] [address] [place] [address]Dr. Artemio Orozco PREG HCG QUALon 05-28-2022 , QUAL Negative Normal NEGATIVE [facility] Comment on above: Performed By: #### P REG #### [facility] [address] [place] [address] Dr. Artemio Orozco CBC AUTO DIFFon 05-21-2022 BASO # 0.0 103/ul Normal 0.0-0.1 [facility] Comment on above: Performed By: #### C BC #### [facility] [address] [place] [address] Dr. Artemio Orozco Basophils/100 WBC (Bld) 0.4 % Normal 0.2-2.0 [facility] Comment on above: Performed By: #### C BC #### [facility] [address] [place] [address] Dr. Artemio Orozco EO # 0.4 103/ul Normal 0.0-0.7 [facility] Comment on above: Performed By: #### C BC #### [facility] [address] [place] [address] Dr. Artemio Orozco Eosinophils/100 WBC (Bld) 5.6 % Normal 0.9-7.0 [facility] Comment on above: Performed By: #### C BC #### [facility] [address] [place] [address] Dr. Artemio Orozco Erythrocyte distribution width (RBC) [Ratio] 13.2 % Normal 11.0-15.0 [facility] Comment on above: Performed By: #### C BC #### [facility] [address] [place] [address] Dr. Artemio Orozco Hematocrit (Bld) [Volume fraction] 41.4 % Normal 36.0-48.0 [facility] Comment on above: Performed By: #### C BC #### [facility] [address] [place] [address] Dr. Artemio Orozco Hemoglobin (Bld) [Mass/Vol] 13.6 g/dL Normal 12.0-16.0 [facility] Comment on above: Performed By: #### C BC #### [facility] [address] [place] [address] Dr. Artemio Orozco IG # 0.02 10e3/ul Normal 0.00-0.03 [facility] Comment on above: Performed By: #### C BC #### [facility] [address] [place] [address] Dr. Artemio Orozco IG % 0.3 % Normal 0.0-0.5 [facility] Comment on above: Performed By: #### C BC #### [facility] [address] [place] [address] Dr. Artemio Orozco LYMPH # 1.9 103/ul Normal 1.2-3.8 [facility] Comment on above: Performed By: #### C BC #### [facility] [address] [place] [address] Dr. Artemio Orozco Lymphocytes/100 WBC (Bld) 25.0 % Normal 20.5-60.0 [facility] Comment on above: Performed By: #### C BC #### [facility] [address] [place] [address] Dr. Artemio Orozco MANUAL DIFF REQ NO Normal [facility] Comment on above: Performed By: #### C BC #### [facility] [address] [place] [address] Dr. Artemio Orozco MCH (RBC) [Entitic mass] 32.9 pg Normal 26.7-34.0 [facility] Comment on above: Performed By: #### C BC #### [facility] [address] [place] [address] Dr. Artemio Orozco MCHC (RBC) [Mass/Vol] 32.9 g/dL Normal 29.9-35.2 [facility] Comment on above: Performed By: #### C BC #### [facility] [address] [place] [address] Dr. Artemio Orozco MCV (RBC) [Entitic vol] 100.0 fL Critically high 81.0-99.0 [facility] Comment on above: Performed By: #### C BC #### [facility] [address] [place] [address] Dr. Artemio Orozco MONO # 0.5 103/ul Normal 0.3-0.8 [facility] Comment on above: Performed By: #### C BC #### [facility] [address] [place] [address] Dr. Artemio Orozco Monocytes/100 WBC (Bld) 7.0 % Normal 1.7-12.0 [facility] Comment on above: Performed By: #### C BC #### [facility] [address] [place] [address] Dr. Artemio Orozco NEUT # 4.6 103/ul Normal 1.4-6.5 [facility] Comment on above: Performed By: #### C BC #### [facility] [address] [place] [address] Dr. Artemio Orozco Neutrophils/100 WBC (Bld) 61.7 % Normal 43.0-75.0 [facility] Comment on above: Performed By: #### C BC #### [facility] [address] [place] [address] Dr. Artemio Orozco Platelet mean volume (Bld) [Entitic vol] 10.2 fL Normal 9.5-13.5 [facility] Comment on above: Performed By: #### C BC #### [facility] [address] [place] [address] Dr. Artemio Orozco PLT 310 103/ul Normal 150-450 [facility] Comment on above: Performed By: #### C BC #### [facility] [address] [place] [address] Dr. Artemio Orozco RBC 4.14 106/ul Critically low 4.20-5.40 [facility] [place] Comment on above: Performed By: #### C BC #### [facility] [address] [place], [place] [address] Dr. Artemio Orozco WBC 7.5 103/ul Normal 4.0-11.0 [facility] Comment on above: Performed By: #### C BC #### [facility] [address] [place], [place] [address] Dr. Artemio rOozco Covid-19 PCR ([facility])on 04-25 SARS-CoV-2 (COVID-19) RNA KALEB+probe Ql (Unsp spec) Not detected Normal NOT DETECTED [facility] Comment on above: Result Comment: This test is not yet approved or cleared by the [place] FDA. When there are no FDA-approved or cleared tests available, and other criteria are met, FDA can make tests available under an emergency access mechanism called an Emergency Use Authorization (EUA). The EUA for this test is supported by the [place] of Health and Human Service's (HHS's) declaration [...] consistent with SARS-CoV-2. Performed By: #### C VDTB ####[facility] [address] [place], [place] [address]YqDr. Artemio Orozco XR CHEST 1 Von 10-17-2021 [...] EYAL HERNANDEZ Date: 2021-10-17 05:27 Normal [facility] CBC AUTO DIFFon 10-16-2021 BASO # 0.0 103/ul Normal 0.0-0.1 [facility] Comment on above: Performed By: #### C BC #### [facility] [address] [place] [address] [address] Artemio Orozco Basophils/100 WBC (Bld) 0.4 % Normal 0.2-2.0 [facility] Comment on above: Performed By: #### C BC #### [facility] [address] [place] [address] [address] Artemio Orozco EO # 0.1 103/ul Normal 0.0-0.7 [facility] Comment on above: Performed By: #### C BC #### [facility] [address] [place] [address] [address] Artemio Orozco Eosinophils/100 WBC (Bld) 1.3 % Normal 0.9-7.0 [facility] Comment on above: Performed By: #### C BC #### [facility] [address] [place] [address] [address] Artemio Orozco Erythrocyte distribution width (RBC) [Ratio] 13.1 % Normal 11.0-15.0 [facility] Comment on above: Performed By: #### C BC #### [facility] [address] [place] [address] Dr. Artemio Orozco Hematocrit (Bld) [Volume fraction] 40.4 % Normal 36.0-48.0 [facility] Comment on above: Performed By: #### C BC #### [facility] [address] [place] [address] [address] Artemio Orozco Hemoglobin (Bld) [Mass/Vol] 13.7 g/dL Normal 12.0-16.0 [facility] Comment on above: Performed By: #### C BC #### [facility] [address] [place] [address] [address] Artemio Orozco IG # 0.02 10e3/ul Normal 0.00-0.03 [facility] Comment on above: Performed By: #### C BC #### [facility] [address] [place] [address] Dr. Artemio Orozco IG % 0.2 % Normal 0.0-0.5 [facility] Comment on above: Performed By: #### C BC #### [facility] [address] [place] [address] Dr. Artemio Orozco LYMPH # 1.7 103/ul Normal 1.2-3.8 [facility] Comment on above: Performed By: #### C BC #### [facility] [address] [place] [address] Dr. Artemio Orozco Lymphocytes/100 WBC (Bld) 16.6 % Critically low 20.5-60.0 [facility] Comment on above: Performed By: #### C BC #### [facility] [address] [place] [address] Dr. Artemio Orozco MANUAL DIFF REQ NO Normal [facility] Comment on above: Performed By: #### C BC #### [facility] [address] [place] [address] Dr. Artemio Orozco MCH (RBC) [Entitic mass] 33.0 pg Normal 26.7-34.0 [facility] Comment on above: Performed By: #### C BC #### [facility] [address] [place] [address] Dr. Artemio Orozco MCHC (RBC) [Mass/Vol] 33.9 g/dL Normal 29.9-35.2 [facility] Comment on above: Performed By: #### C BC #### [facility] [address] [place] [address] Dr. Artemio Orozco MCV (RBC) [Entitic vol] 97.3 fL Normal 81.0-99.0 [facility] Comment on above: Performed By: #### C BC #### [facility] [address] [place] [address] Dr. Artemio Orozco MONO # 0.5 103/ul Normal 0.3-0.8 [facility] Comment on above: Performed By: #### C BC #### [facility] [address] [place] [address] Dr. Artemio Orozco Monocytes/100 WBC (Bld) 4.8 % Normal 1.7-12.0 [facility] Comment on above: Performed By: #### C BC #### [facility] [address] [place] [address] Dr. Artemio Orozco NEUT # 8.0 103/ul Critically high 1.4-6.5 [facility] [place] Comment on above: Performed By: #### C BC #### [facility] [address] [place] [address] Dr. Artemio Orozco Neutrophils/100 WBC (Bld) 76.7 % Critically high 43.0-75.0 [facility] Comment on above: Performed By: #### C BC #### [facility] [address] [place] [address] Dr. Artemio Orozco Platelet mean volume (Bld) [Entitic vol] 10.2 fL Normal 9.5-13.5 [facility] Comment on above: Performed By: #### C BC #### [facility] [address] [place] [address] Dr. Artemio Orozco PLT 287 103/ul Normal 150-450 [facility] Comment on above: Performed By: #### C BC #### [facility] [address] [place] [address] Dr. Artemio Orozco RBC 4.15 106/ul Critically low 4.20-5.40 [facility] [place] Comment on above: Performed By: #### C BC #### [facility] [address] [place] [address] Dr. Artemio Orozco WBC 10.4 103/ul Normal 4.0-11.0 [facility] Comment on above: Performed By: #### C BC #### [facility] [address] [place] [address] Dr. Artemio Orozco CTA CHEST WO W CONon 021 CTA CHEST WO W CON EXAMINATION: CTA CHEST WO W CON HISTORY: Pulmonary embolism , [...] JOANIE CARL Date: 2021-10-16 08:46 Normal [facility] Covid-19 PCR ([facility])on 09-25 SARS-CoV-2 (COVID-19) RNA KALEB+probe Ql (Unsp spec) Not detected Normal NOT DETECTED [facility] Comment on above: Result Comment: When [...] for this test is supported by the [employer] of Health and Human Service's declaration that [...] longer be used). Performed By: #### C VDTB #### [facility] [address] [place] [address] Dr. Artemio Orozco D-DIMERon 10-16-2021 D-DIMER 0.61 mg/L FEU Critically high 0.19-0.50 [facility] Comment on above: Result Comment: TEST REPEATED; CRITICAL VALUE VERIFIED Performed By: #### D DIM ####[facility] [address] [place] [id number]. Artemio Orozco D-DIMER COMMENTS SEE BELOW Normal [facility] Comment on above: Result Comment: Incr eases [...] generalized hospitalization. Performed By: #### D DIM ####[facility] [address] [place] [address]Dr. Artemio Orozco PROF 14(COMP METB)on 021 Albumin [Mass/Vol] 3.7 g/dL Normal 3.5-5.0 [facility] Comment on above: Performed By: #### H STROPN, TSH, CMP #### [facility] [address] [place] [address] [address] Artemio Orozco Albumin/Globulin [Mass ratio] 0.9 {ratio} Normal [facility] Comment on above: Performed By: #### H STROPN, TSH, CMP #### [facility] [address] [place] [address] [address] Artemio Orozco ALP [Catalytic activity/Vol] 58 U/L Normal 38-126 [facility] Comment on above: Performed By: #### H STROPN, TSH, CMP #### [facility] [address] [place] [address] [address] Artemio Orozco ALT [Catalytic activity/Vol] 23 U/L Normal 9-52 [facility] Comment on above: Performed By: #### H STROPN, TSH, CMP #### [facility] [address] [address] [address] Artemio Orozco Anion gap [Moles/Vol] 16.8 mmol/L Normal [facility] Comment on above: Performed By: #### H STROPN, TSH, CMP #### [facility] [address] [address] [address] Artemio Orozco AST [Catalytic activity/Vol] 15 U/L Normal 14-36 [facility] Comment on above: Performed By: #### H STROPN, TSH, CMP #### [facility] [address] [place] [address] Dr. Artemio Orozco Bilirubin [Mass/Vol] 0.5 mg/dL Normal 0.2-1.3 [facility] Comment on above: Performed By: #### H STROPN, TSH, CMP #### [facility] [address] [place] [address] Dr. Artemio Orozco Calcium [Mass/Vol] 9.1 mg/dL Normal 8.4-10.2 [facility] Comment on above: Performed By: #### H STROPN, TSH, CMP #### [facility] [address] [place] [address] Dr. Artemio Orozco Chloride [Moles/Vol] 105 mmol/L Normal 98-107 [facility] Comment on above: Performed By: #### H STROPN, TSH, CMP #### [facility] [address] [place] [address] Dr. Artemio Orozco CO2 [Moles/Vol] 23.9 mmol/L Normal 22.0-30.0 [facility] Comment on above: Performed By: #### H STROPN, TSH, CMP #### [facility] [address] [place] [address] Dr. Artemio Orozco Creatinine [Mass/Vol] 0.65 mg/dL Normal 0.52-1.04 [facility] Comment on above: Performed By: #### H STROPN, TSH, CMP #### [facility] [address] [place] [address] Dr. Artemio Orozco EGFR-AF SURINAMESE >60 Normal >=60 [facility] Comment on above: Performed By: #### H STROPN, TSH, CMP #### [facility] [address] [place] [address] Dr. Artemio Orozco EGFR-NON AF SURINAMESE >60 Normal >=60 [facility] Comment on above: Performed By: #### H STROPN, TSH, CMP #### [facility] [address] [address] [address] Artemio Orozco Globulin (S) [Mass/Vol] 4.1 g/dL Normal [facility] Comment on above: Performed By: #### H STROPN, TSH, CMP #### [facility] [address] [address] [address] Artemio Orozco Glucose [Mass/Vol] 106 mg/dL Normal 74-106 [facility] Comment on above: Performed By: #### H STROPN, TSH, CMP #### [facility] [address] [place] [address] [address] Artemio Orozco Potassium [Moles/Vol] 3.7 mmol/L Normal 3.4-5.0 [facility] Comment on above: Performed By: #### H STROPN, TSH, CMP #### [facility] [address] [place] [address] [address] Artemio Orozco Protein [Mass/Vol] 7.8 g/dL Normal 6.1-8.2 [facility] Comment on above: Performed By: #### H STROPN, TSH, CMP #### [facility] [address] [place] [address] [address] Artemio Orozco Sodium [Moles/Vol] 142 mmol/L Normal 137-145 [facility] Comment on above: Performed By: #### H STROPN, TSH, CMP #### [facility] [address] [address] [address] Artemio Orozco Urea nitrogen [Mass/Vol] 9.0 mg/dL Normal 7.0-17.0 [facility] Comment on above: Performed By: #### H STROPN, TSH, CMP #### [facility] [address] [address] [address] Artemio Orozco Urea nitrogen/Creatinine [Mass ratio] 13.8 mg/mg Normal [facility] Comment on above: Performed By: #### H STROPN, TSH, CMP #### [facility] [address] [place] [place] [address] [address] Artemio Orozco TROPONIN, HIGH SENSITIVITYon 10-16-2021 HSTROP 8.1 pg/mL Normal 4.0-35.5 [facility] Comment on above: Result Comment: CUT- OFF POINTS HAVE BEEN ESTABLISHED BASED ON THE FOURTH UNIVERSAL DEFINITIONS OF MYOCARDIAL INFARCTION. THE UPPER REFERENCE LIMIT (URL) OF TROPONIN, DEFINED THE 99TH PERCENTILE OF cTnI DISTRIBUTION IN A REFERENCE POPULATION, HAS BEEN CONFIRMED THE DECISION THRESHOLD FOR [place] DIAGNOSIS. Performed By: #### H STROPN, TSH, CMP #### [facility] [address] [place] [address] [address] Artemio Orozco TSHon 10-16-2021 TSH 3.114 uIU/mL Normal 0.470-4.680 [facility] Comment on above: Performed By: #### H STROPN, TSH, CMP #### [facility] [address] [place] [address] [address] Artemio Orozco TSH RANGE SEE BELOW Normal [facility] Comment on above: Result Comment: <0.3 4 UIU/ml HYPERTHYROID 0.34-5.60 UIU/ml EUTHYROID >5.60 UIU/ml HYPOTHYROID Performed By: #### H STROPN, TSH, CMP #### [facility] [address] [place] [address] Dr. Artemio Orozco Vital Signs Date Time Vital Sign Value Performing Clinician Faci lity 09-22-2024 16:54-0400 Body height 157.5 cm Yajaira Davies [employer] Work Phone: [facility] 09-22-2024 16:54-0400 Body mass index (BMI) [Ratio] 25.15 kg/m2 Yajaira Davies [employer] SUPER[employer] Work Phone: [facility] 09-22-2024 16:54-0400 Body temperature 97.5 [degF] Yajaira Davies [employer] SUPERVISOR Work Phone: [facility] 09-22-2024 16:54-0400 Body weight 62.37 kg Yajaira Davies [employer] SUPERVISOR Work Phone: [facility] 09-22-2024 16:54-0400 Diastolic blood pressure 76 mm[Hg] Yajaira Garciapatrick KITCHEN WORK SUPERVISOR Work Phone: [facility] 09-22-2024 16:54-0400 Heart rate 98 /min Yajaira Garciapatrick KITCHEN WORK SUPERVISOR Work Phone: [facility] 09-22-2024 16:54-0400 Respiratory rate 16 /min Yajaira Castrotrick KITCHEN WORK SUPERVISOR Work Phone: [facility] 09-22-2024 16:54-0400 SaO2% (BldA) [Mass fraction] 100 % Yajaira Castrotrick KITCHEN WORK SUPERVISOR Work Phone: [facility] 09-22-2024 16:54-0400 Systolic blood pressure 110 mm[Hg] Yajaira Garciapatrick KITCHEN WORK SUPERVISOR Work Phone: [facility] Healthcare Encounters Encounter Date Encounter Type Care Provider Facility Start: 10-02-2024 End: 10-02-2024 Clinisync Result Encounter Yajiara Hillmank KITCHEN WORK SUPERVISOR Work Phone: [facility] External Department Unsolicited Start: 10-02-2024 End: 10-02-2024 Clinisync Result Encounter Yajaira Hillmank KITCHEN WORK SUPERVISOR Work Phone: [facility] External Department Unsolicited Start: 09-22-2024 End: 09-22-2024 Initial preventive medicine new pt age 18-39yrs Yajaira Castrotrick KITCHEN WORK SUPERVISOR Work Phone: [facility] Comment on above: Wellness examination (Primary Dx); Encounter to establish care Start: 09-22-2024 End: 09-22-2024 ambulatory YAJAIRA HILLMANK Not Available Start: 09-22-2024 End: 09-22-2024 Patient encounter status Yajaira Hillmank KITCHEN WORK SUPERVISOR Work Phone: [facility] Healthcare Work Phone: Start: 08-05-2022 End: 08-05-[address] SHELIA DE LEÓN Facility:[facility] Start: 05-29-2022 Encounter for preprocedural laboratory examination DR SHANNON COLE [facility] Start: 05-28-2022 End: 05-28-[address] SHELIA [...] Date Procedure Procedure Detail Performing Clinician Start: 10-02-2024 ALL CBC WITH AUTO DIFF Yajaira Davies KITCHEN WORK SUPERVISOR Work Phone: Start: 08-05-2022 Microscopic observat ion [Identifier] in Cervix by Cyto stain Yajaira Davies KITCHEN WORK SUPERVISOR Work Phone: Plan of Treatment Date Care Activity Detail Author Start: 08-05-2025 Screening for malign ant neoplasm of cervix [facility] Start: 09-22-2024 End: 09-22-2025 CBC W Auto Differential panel - Blood CBC and differential Lab Routine Wellness examination Expected: 09/22/2024 (Approximate), Expires: 09/22/2025 [facility] Comment on above: Expected: 09/22/2024 (Approximate), Expires: 09/22/2025 Start: 09-22-2024 End: 09-22-2025 Comprehensive metabolic 2000 panel - Serum or Plasma Comprehensive metabolic panel Lab Routine Wellness examination Expected: 09/22/2024 (Approximate), Expires: 09/22/2025 [facility] Comment on above: Expected: 09/22/2024 (Approximate), Expires: 09/22/2025 Start: 09-22-2024 End: 09-22-2025 Hemoglobin A1c/Hemoglobin.total in Blood Hemoglobin A1c Lab Routine Wellness examination Expected: 09/22/2024 (Approximate), Expires: 09/22/2025 [facility] Comment on above: Expected: 09/22/2024 (Approximate), Expires: 09/22/2025 Start: 09-22-2024 End: 09-22-2025 Lipid 1996 panel - Serum or Plasma Lipid panel Lab Routine Wellness examination Expected: 09/22/2024 (Approximate), Expires: 09/22/2025 [facility] Comment on above: Expected: 09/22/2024 (Approximate), Expires: 09/22/2025 Start: 09-22-2024 End: 09-22-2025 TSH W/REFLEX TO FT4 TSH W/REFLEX TO FT4 Lab Routine Wellness examination Expected: 09/22/2024 (Approximate), Expires: 09/22/2025 [facility] Work Phone: Comment on above: Expected: 09/22/2024 (Approximate), Expires: 09/22/2025 Start: 2017 Screening for malign ant neoplasm of cervix HPV/Cotest [facility] Payers Date Payer Category [facility]ayer [facility] [id number] 2023 Unknown [id number] 1987 Unknown [id number] 1987 Unknown [id number] 1987 Unknown [id number] 1987 Unknown [id number] [id number] 1987 Unknown [id number] [id number] 1987 Unknown [id number] [id number] 1987 Unknown [id number] 1959 Unknown [id number] Social History Date Type Detail Facility Start: 07-31-2023 Tobacco smoking stat [facility] Never smoked tobacco [facility] Start: 09-22-2024 Alcoholic beverage intake Life time non-drinker (finding) [facility] Start: 09-22-2024 History of Social function [facility] Start: 09-22-2024 Tobacco use panel [facility] Start: 07-31-2023 Alcohol Comment Caffeine: 1-2 cups per day chocolate, tea [facility] Start: 1985 Sex assigned at Not on file [facility] History of Present illness Narrative 09-22-2024 Yajaira Davies, LEX - 09/22/2024 5:26 PM EDAnamaria Davies NP - 09/22/2024 5:00 PM EDT [...] day. Consider tracking your food intake on MyOlocityinessPal or LoseIt Water: Increase water intake; GOAL [...] helps Lives at home with Works at [employer] in [place] Enjoys reading, going on walks, being in nature, concerts, spending time with , active in confucianist. Diet: Mostly home cooked meals; Moderate protein. [...] to establish care documented in this encounter [facility] Instructions 09-22-2024 Patient Instructions Note Date & Type Note Facility 09-22-2024 Instructions Yajaira Davies NP - 09/22/2024 5:00 PM EDT FASTING labs ordered. Nothing to eat or drink for 12 hours prior to blood draw. Water and black coffee ok. Try stopping eating 4-6 hours before bed. Avoid caffeine after 12pm. Limit sweets. Call if you need anything! documented in this encounter [facility] Clinical Note 05-28-2022 Note Date & Type [...] to the recovery room in good condition. 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 Relationship Specialty Start Date End Date Juancarlos Walter MD [address] [place] [id number] PCP - General Family Medicine 08/24/24 Yajaira Davies NP [address] [place] [id number] Nurse Practitioner Family Medicine 08/24/24 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 [facility] [employer] [facility]. provides no warranty or guarantee of the accuracy or completeness of information in this document.
[2024-11-06 18:13] VITALS: BP 120/92; PULSE 86; TEMP 36.6; O2SAT 98; BMI 28.0
--- NOTE | 2024-11-06 18:24 | ED_ITS ---
HPI - URI/Sore Throat General Chief Complaint: Upper Respiratory Infection Stated Complaint: Sore Throat Time Seen by Provider: 11/06/24 18:07 Source: patient History of Present Illness HPI Narrative: This patient is here for sore throat and a little bit of congestion. She does not have terrible influenza aches pains myalgias arthralgias headache and neck pain. She is not running a fever here and does not have historically fever. She says her phlegm is greenish-yellow. She is a nontobacco user has no history of asthma pneumonia or respiratory problems is not on any antibiotics or steroids at this time. She has no history of cardiac problems. No swelling in her legs. She has mild fullness in her ears but no actual earache. She has not lost her voice. She has slight nasal congestion. Related Data Home Medications ?Medication ?Instructions ?Recorded ?Confirmed No Known Home Medications 11/06/24 11/06/24 Allergies Allergy/AdvReac Type Severity Reaction Status Date / Time No Known Drug Allergies Allergy Verified 11/06/24 18:13 PFSH PFSH Social History Little interest or pleasure in doing things: not at all Feeling down, depressed, or hopeless: not at all Exam Narrative Exam Narrative: Patient is awake alert vital signs are noted slight elevation of her diastolic blood pressure otherwise her pulse oximetry and respiratory rate are normal. She does not appear ill or toxic. Her lungs were clear with no wheeze rales or rhonchi. Coughing did not reproduce any bronchospasm and it was not a terrible wet cough. Heart sounds are normal with no S3-S4 or murmur. HEENT shows TMs to be completely normal. She still has her tonsils but there is no erythema swelling or exudate. Voice is normal. There is no cervical adenitis. There is no conjunctivitis. No swelling of the mucous membranes. Her skin and integument are normal with normal hydration status. Constitutional Vital Signs, click to edit/add: Last Vital Signs Temp 98 F 11/06/24 18:13 Pulse 86 11/06/24 18:13 Resp 18 11/06/24 18:13 BP 120/92 H 11/06/24 18:13 Pulse Ox 98 11/06/24 18:13 Course Vital Signs Vital signs: Vital Signs Temperature 98 F 11/06/24 18:13 Pulse Rate 86 11/06/24 18:13 Respiratory Rate 18 11/06/24 18:13 Blood Pressure 120/92 H 11/06/24 18:13 Pulse Oximetry 98 11/06/24 18:13 Temperature 98 F 11/06/24 18:13 Pulse Rate 86 11/06/24 18:13 Respiratory Rate 18 11/06/24 18:13 Blood Pressure 120/92 H 11/06/24 18:13 Pulse Oximetry 98 11/06/24 18:13 MDM - URI/Sore Throat MDM Narrative Medical decision making narrative: At this juncture she has had respiratory symptoms for approximately 5 days or so. This is most likely viral in etiology. We discussed with her the appropriate use of antibiotics. If she has continued symptoms or purulent sputum after day 7 or 8 we will give her a prescription for azithromycin. She is in agreement with this treatment recommendation. I do not believe she needs any imaging at this time Discharge Plan Discharge Chief Complaint: Upper Respiratory Infection Clinical Impression: Upper respiratory infection, Acute upper respiratory infection Patient Disposition: Home, Self-Care Time of Disposition Decision: 18:27 Prescriptions / Home Meds: No Action No Known Home Medications Print Language: Georgian Additional Instructions: If symptoms persist on day 7 or 8 of your illness you may start the azithromycin. May use [id number] Mucinex for cough and cold symptoms Referrals: OSIEL NETTLES [Primary Care Provider] - 1 week
== END 2024-11-06 18:42 | disposition home or self-care (01) ==
PROVIDERS: Emergency Provider Emergency Medicine Emergency Medical Services
DX: J06.9 Acute upper respiratory infection, unspecified (principal)
CPT/HCPCS: 99283

== ENCOUNTER 2025-10-05 08:35 | Outpatient (OUT) | payer OTHER, SELFPAY ==
--- OUTSIDE RECORDS SUMMARY | 2025-10-05 08:43 | XMS_ITS | Clinical Summary ---
Author Organization [facility] Address [address] [place] [address] Care Team Providers Care Scientific Systems Analyst Name Role Phone Juancarlos Walter MD Primary Care Provider [phone] Yajaira Davies CHARTER BOAT CAPTAIN Unavailable [phone] Allergies No known active allergies Medications MedicationSigDispense QuantityRefillsLast FilledStart DateEnd DateStatus omeprazole OTC (PriLOSEC OTC) 20 MG EC tablet Take 20 mg by mouth in the morning. Take before meals. Do not crush, chew, or split..Active Active Problems ProblemNoted DateDiagnosed DateAllergic rgfoistn32/30/2024Gastroesophageal reflux disease without erqbgzwvwer51/30/2024Wellness izcvzdvoklr41/30/2024 Assessment & Plan (09/22/2024 5:26 PM EDT): I have reviewed Ht/Wt/BMI, I have reviewed recommended vaccines for patient's age, as well as all recommended screenings I have reviewed available care everywhere notes as well. I have recommended eating a balanced diet,as well as activity as chronic conditions allow It is recommended that the patient have a yearly eye exam, as well as twice a year dental exams Fu in this office for wellness on a yearly basis Diet: Eat three meals per day. Breakfast, lunch, and dinner. Avoid snacking. Avoid eating after 5/6pm. Daily protein GOAL 35% of your intake; [...] GOAL 6-8 hours of sleep per night. Encounter to establish care09/22/2024 Family History Medical HistoryRelationNameCommentsHyperlipidemiaFatherHypertensionFatherCOPD MotherIrritable bowel syndromeMotherRelationNameStatusCommentsFatherAliveMother Alive Social History Tobacco UseTypesPacks/DayYears UsedDateSmoking Tobacco: Never Tobacco Cessation:Counseling Given: Not Answered Alcohol UseStandard Drinks/WeekCommentsNever0 (1 standard drink = 0.6 oz pure alcohol)Caffeine: 1-2 cups per day chocolate, teaCommentsNoSex and Gender InformationValueDate RecordedSex Assigned at BirthNot on fileLegal Sex Bwjxoj8702/05/2023 6:57 PM EDTGender IdentityNot on fileSexual OrientationNot on file Last Filed Vital Signs Vital SignReadingTime TakenCommentsBlood Xrjpjdwh815/7609/22/2024 4:54 PM EDT Gcrop311609/22/2024 4:54 PM HKVNaqxhwxxocb22.4 ??C (97.5 ??F)09/22/2024 4:54 PM EDTRespiratory Hoih1237 4:54 PM EDTOxygen Zrfmuowmpp614%09/22/2024 4:54 PM EDTInhaled Oxygen Concentration--Eonrnh46.4 kg (137 lb 8 oz)09/22/2024 4:54 PM JNMYnmzem235.5 cm (5' 2 )09/22/2024 4:54 PM EDTBody Mass Index25.151 4:54 PM EDT Plan of Treatment Not on file Insurance * Guarantor: Laura Rawlscount TypeRelation to PatientDate of BirthPhone Billing AddressPersonal/[id number] [facility] [place] [id number] Care Teams Team MemberRelationshipSpecialtyStart DateEnd Date Juancarlos Walter MD PCP - GeneralFamily Ofwatiry41/1/24 Yajaira Davies NP Nurse PractitionerFamily Uqtdurve44/1/24
[2025-10-05 09:06] LABS: Hematocrit 41.4 % (36.0-48.0); Hemoglobin 14.1 g/dL (12.0-16.0); Immature Granulocytes Abs Auto 0.01 10^3/uL (0.00-0.03); Immature Granulocytes Pct Auto 0.1 % (0.0-0.5); Lymphocytes Absolute Auto 1.9 10^3/uL (1.2-3.8); Mean Corpuscular HGB Conc 34.1 g/dL (29.9-35.2); Mean Corpuscular Hemoglobin 33.2 pg (26.7-34.0); Mean Corpuscular Volume 97.4 fL (81.0-99.0); Platelet Count 305 10^3/uL (150-450); Red Blood Count 4.25 10^6/uL (4.20-5.40); White Blood Count 7.9 10^3/uL (4.0-11.0)
[2025-10-05 11:06] LABS: Alanine Aminotransferase 25 U/L (14-59); Albumin Globulin Ratio 0.9; Albumin Level 3.6 g/dL (3.4-5.0); Alkaline Phosphatase 68 U/L (46-116); Anion Gap 10.6; Aspartate Amino Transferase 16 U/L (15-37); Blood Urea Nitrogen 13.0 mg/dL (7.0-18.0); Calcium 8.9 mg/dL (8.5-10.1); Carbon Dioxide 27.1 mmol/L (21.0-32.0); Chloride 105 mmol/L (98-107); Cholesterol 217 mg/dL (<=200); Estimated GFR (African America >60 (>=60 mL/min/1.73m^2); Estimated GFR (Non-African Ame >60 (>=60 mL/min/1.73m^2); Globulin 3.8 g/dL; Glucose 84 mg/dL (74-106); HDL Cholesterol 60 mg/dL (40-60); Potassium 3.7 mmol/L (3.5-5.1); Sodium 139 mmol/L (136-145); Thyroid Stimulating Hormone 4.145 uIU/mL (0.358-3.740); Total Protein 7.4 g/dL (6.4-8.2); Triglycerides 59 mg/dL (<=150); VLDL CHOLESTEROL 11.8 mg/dL
[2025-10-06 08:09] LABS: Vitamin B12 792 pg/mL (232-1245)
== END 2025-10-05 08:36 | disposition home or self-care (01) ==
PROVIDERS: PCP Family Medicine; Visit Provider Family Medicine
DX: Z00.00 Encounter for general adult medical examination without abnormal findings (principal); E53.8 Deficiency of other specified B group vitamins; E55.9 Vitamin D deficiency, unspecified
CPT/HCPCS: 36415; 80053; 80061; 82306; 82607; 83036; 84443; 85025